=== PATIENT | male | born 1960 | race African-American/Black ===

== ENCOUNTER 2019-08-03 22:38 | Inpatient (IN) | payer SELFPAY ==
[~2019-08-03] VITALS: Ht 167.6 cm; Wt 57.2 kg
[2019-08-03] MEDS ORDERED: MORPHINE SULFATE 4 MG/ML CPJ (NOT FOR IM USE) IV STA (23:35)
[2019-08-03] MEDS ORDERED: SODIUM CHLORIDE 0.9% 1,000 ML IV ONE (23:35)
[2019-08-03] MEDS ORDERED: ONDANSETRON HCL 4MG/2ML INJ IV STA (23:35)
[2019-08-03] MEDS ORDERED: PANTOPRAZOLE SODIUM 40 MG/VIAL IV ONE (23:45)
[2019-08-04 00:16] LABS: BASOPHILS % 0.6 % (0.0-2.0); HEMATOCRIT. 26.7 % (42.0-52.0); HEMOGLOBIN. 9.2 g/dL (14.0-18.0); LYMPHOCYTES % 14.7 % (20.0-50.0); MEAN CORPUSCULAR HEMOGLOBIN 25.2 pg (28.0-32.0); MEAN CORPUSCULAR VOLUME 72.9 fL (80.0-94.0); MEAN PLATELET VOLUME 6.7 fl (7.4-10.4); NEUTROPHILS % 74.7 % (40.0-76.0); PLATELET 431 x1000/uL (130-400); RED BLOOD CELL COUNT 3.66 mill/uL (4.7-6.1); RED CELL DISTRIBUTION WIDTH 17.1 % (11.6-14.6)
[2019-08-04 00:23] LABS: CHLORIDE 106 mEq/L (98-107)
[2019-08-04 00:33] LABS: PARTIAL THROMBOPLASTIN TIME 23.1 sec (23.4-31.0); PROTHROMBIN TIME 10.6 sec (9.6-11.0)
[2019-08-04] MEDS: SODIUM CHLORIDE 0.45% 1,000 ML IV SCH ×2 (07:18→21:18)
[2019-08-04] MEDS ORDERED: IPRATROPIUM/ALBUTEROL 0.5-3(2.5)MG/3ML NEB NEB PRN (07:30)
[2019-08-04] MEDS ORDERED: HYDRALAZINE 20MG/ML VIAL IV PRN (07:30)
[2019-08-04] MEDS ORDERED: DEXTROSE 50% WATER 50ML SYRINGE IV PRN (07:30)
[2019-08-04] MEDS ORDERED: GUAIFENESIN 200MG/10ML SUGAR FREE UDC PO PRN (07:30)
[2019-08-04] MEDS ORDERED: DIPHENHYDRAMINE 50MG/ML VIAL IV PRN (07:30)
[2019-08-04] MEDS ORDERED: CLONIDINE 0.1MG TABLET PO PRN (07:30)
[2019-08-04] MEDS ORDERED: DOCUSATE SODIUM 100MG CAPSULE PO PRN (07:30)
[2019-08-04] MEDS ORDERED: ACETAMINOPHEN 325MG TABLET PO PRN (07:30)
[2019-08-04] MEDS: INSULIN LISPRO 100 UNITS/ML SUBCUT SCH ×4 (08:20→20:56)
[2019-08-04] MEDS: BLOOD SUGAR DIAGNOSTIC STRIP TEST SCH ×4 (08:56→20:32)
[2019-08-04] MEDS ORDERED: NA PHOS,M-B/NA PHOS,DI-BA ENEMA 118ML PR PRN (09:00)
[2019-08-04] MEDS: MORPHINE SULFATE 2 MG/ML CPJ (NOT FOR IM USE) IV PRN ×2 (09:33→21:00)
[2019-08-04] MEDS: ONDANSETRON HCL 4MG/2ML INJ IV PRN ×2 (09:33→18:32)
[2019-08-04 11:26] VITALS: BP 172/79
[2019-08-04] MEDS: HYDROCODONE/ACETAMINOPHEN 10/325MG TABLET PO PRN (11:57)
[2019-08-04] MEDS: PANTOPRAZOLE SODIUM 40 MG/VIAL IV SCH (11:59)
[2019-08-04] MEDS: SODIUM CHLORIDE 0.9% INJ 3ML FLUSH IVF SCH (14:00)
[2019-08-04 16:10] LABS: CREATINE KINASE 124 IU/L (39-308)
[2019-08-04 16:12] LABS: CREATINE KINASE MB FRACTION 1.4 ng/mL (0.5-3.6)
[2019-08-04 18:02] LABS: HEMATOCRIT 29.1 % (42.0-52.0); HEMOGLOBIN 9.7 g/dL (14.0-18.0)
[2019-08-04] MEDS: MAGNESIUM/ALUMINUM HYDROXIDE/SIMETHICONE 30ML UDC PO PRN (18:31)
[2019-08-04 20:00] VITALS: BP 123/69
[2019-08-05] VITALS: BP 111/56
[2019-08-05 00:32] LABS: CREATINE KINASE MB FRACTION < 1.0 ng/mL (0.5-3.6)
[2019-08-05 00:36] LABS: CREATINE KINASE 98 IU/L (39-308)
[2019-08-05 00:53] LABS: HEMATOCRIT 26.5 % (42.0-52.0); HEMOGLOBIN 8.7 g/dL (14.0-18.0)
[2019-08-05 04:00] VITALS: BP 143/79
[2019-08-05] MEDS: SODIUM CHLORIDE 0.9% INJ 3ML FLUSH IVF SCH ×2 (05:17→14:00)
[2019-08-05] MEDS: BLOOD SUGAR DIAGNOSTIC STRIP TEST SCH ×4 (05:42→21:44)
[2019-08-05] MEDS: INSULIN LISPRO 100 UNITS/ML SUBCUT SCH ×4 (05:42→21:50)
[2019-08-05] MEDS: MORPHINE SULFATE 2 MG/ML CPJ (NOT FOR IM USE) IV PRN ×4 (05:43→21:31)
[2019-08-05 06:13] LABS: BASOPHILS % 0.3 % (0.0-2.0); EOSINOPHILS % 1.1 % (0.0-5.0); HEMATOCRIT. 27.7 % (42.0-52.0); HEMOGLOBIN. 9.2 g/dL (14.0-18.0); LYMPHOCYTES % 25.3 % (20.0-50.0); MEAN CORPUSCULAR HEMOGLOBIN 24.2 pg (28.0-32.0); MEAN CORPUSCULAR VOLUME 72.7 fL (80.0-94.0); MEAN PLATELET VOLUME 6.7 fl (7.4-10.4); MONOCYTES % 6.6 % (2.0-8.0); NEUTROPHILS % 66.7 % (40.0-76.0); PLATELET 440 x1000/uL (130-400); RED BLOOD CELL COUNT 3.82 mill/uL (4.7-6.1); RED CELL DISTRIBUTION WIDTH 17.6 % (11.6-14.6)
[2019-08-05 07:25] LABS: CHLORIDE 106 mEq/L (98-107)
[2019-08-05 08:20] VITALS: BP 135/70
[2019-08-05] MEDS: PANTOPRAZOLE SODIUM 40 MG/VIAL IV SCH ×2 (09:12→20:45)
[2019-08-05] MEDS: MAGNESIUM/ALUMINUM HYDROXIDE/SIMETHICONE 30ML UDC PO PRN (09:12)
[2019-08-05] MEDS: SODIUM CHLORIDE 0.45% 1,000 ML IV SCH ×2 (10:50→21:32)
[2019-08-05 12:28] VITALS: BP 126/68
[2019-08-05 16:12] VITALS: BP 135/70
[2019-08-06] VITALS: BP 113/56
[2019-08-06] MEDS: SODIUM CHLORIDE 0.9% INJ 3ML FLUSH IVF SCH ×4 (00:38→22:26)
[2019-08-06] MEDS: MORPHINE SULFATE 2 MG/ML CPJ (NOT FOR IM USE) IV PRN ×4 (02:22→22:27)
[2019-08-06 04:00] VITALS: BP 117/72
[2019-08-06 06:11] LABS: BASOPHILS % 0.6 % (0.0-2.0); EOSINOPHILS % 2.4 % (0.0-5.0); HEMATOCRIT. 25.6 % (42.0-52.0); HEMOGLOBIN. 8.4 g/dL (14.0-18.0); LYMPHOCYTES % 40.6 % (20.0-50.0); MEAN CORPUSCULAR HEMOGLOBIN 24.1 pg (28.0-32.0); MEAN CORPUSCULAR VOLUME 73.4 fL (80.0-94.0); MEAN PLATELET VOLUME 6.5 fl (7.4-10.4); MONOCYTES % 12.9 % (2.0-8.0); NEUTROPHILS % 43.5 % (40.0-76.0); PLATELET 446 x1000/uL (130-400)
[2019-08-06] MEDS: BLOOD SUGAR DIAGNOSTIC STRIP TEST SCH ×4 (06:25→21:00)
[2019-08-06] MEDS: INSULIN LISPRO 100 UNITS/ML SUBCUT SCH ×4 (06:25→21:00)
[2019-08-06 06:29] LABS: CHLORIDE 106 mEq/L (98-107)
[2019-08-06] MEDS: ONDANSETRON HCL 4MG/2ML INJ IV PRN ×2 (09:08→17:04)
[2019-08-06] MEDS: PANTOPRAZOLE SODIUM 40 MG/VIAL IV SCH ×2 (09:08→22:25)
[2019-08-06 12:00] VITALS: BP 112/63
[2019-08-06] MEDS: SODIUM CHLORIDE 0.45% 1,000 ML IV SCH (12:38)
[2019-08-06] MEDS: MAGNESIUM/ALUMINUM HYDROXIDE/SIMETHICONE 30ML UDC PO PRN (14:56)
[2019-08-06 16:00] VITALS: BP 106/65
[2019-08-06 20:00] VITALS: BP 128/81
[2019-08-07] VITALS: BP 127/66
[2019-08-07] MEDS: SODIUM CHLORIDE 0.45% 1,000 ML IV SCH ×3 (02:07→21:26)
[2019-08-07] MEDS: LORAZEPAM 2MG/ML CPJ IV PRN ×2 (02:07→23:56)
[2019-08-07 04:00] VITALS: BP 126/70
[2019-08-07 05:48] LABS: CHLORIDE 108 mEq/L (98-107)
[2019-08-07 05:49] LABS: PROTHROMBIN TIME 10.9 sec (9.6-11.0)
[2019-08-07] MEDS: SODIUM CHLORIDE 0.9% INJ 3ML FLUSH IVF SCH ×3 (06:10→21:26)
[2019-08-07 06:26] LABS: BASOPHILS % 0.3 % (0.0-2.0); EOSINOPHILS % 3.4 % (0.0-5.0); HEMATOCRIT. 27.6 % (42.0-52.0); HEMOGLOBIN. 9.1 g/dL (14.0-18.0); LYMPHOCYTES % 38.5 % (20.0-50.0); MEAN CORPUSCULAR HEMOGLOBIN 24.1 pg (28.0-32.0); MEAN CORPUSCULAR VOLUME 73.1 fL (80.0-94.0); MEAN PLATELET VOLUME 6.5 fl (7.4-10.4); MONOCYTES % 13.1 % (2.0-8.0); NEUTROPHILS % 44.7 % (40.0-76.0); PLATELET 432 x1000/uL (130-400); RED BLOOD CELL COUNT 3.77 mill/uL (4.7-6.1); RED CELL DISTRIBUTION WIDTH 17.8 % (11.6-14.6)
[2019-08-07] MEDS: BLOOD SUGAR DIAGNOSTIC STRIP TEST SCH ×4 (07:33→21:26)
[2019-08-07] MEDS: INSULIN LISPRO 100 UNITS/ML SUBCUT SCH ×4 (07:50→21:20)
[2019-08-07 08:20] VITALS: BP 127/69
[2019-08-07] MEDS: PANTOPRAZOLE SODIUM 40 MG/VIAL IV SCH ×2 (08:27→21:25)
[2019-08-07] MEDS: MORPHINE SULFATE 2 MG/ML CPJ (NOT FOR IM USE) IV PRN ×3 (12:03→21:36)
[2019-08-07 12:14] VITALS: BP 131/69
[2019-08-07 16:09] VITALS: BP 122/65
[2019-08-07] MEDS ORDERED: MIDAZOLAM HCL 5 MG/5 ML VIAL IV PRN (17:55)
[2019-08-07] MEDS ORDERED: FENTANYL CITRATE/PF 50MCG/ML 2ML VIAL IV PRN (17:56)
[2019-08-07] MEDS ORDERED: MIDAZOLAM HCL 5 MG/5 ML VIAL ONE (17:58)
[2019-08-07] MEDS ORDERED: FENTANYL CITRATE/PF 50MCG/ML 2ML VIAL ONE (17:59)
[2019-08-07 20:00] VITALS: BP 129/69
[2019-08-07] MEDS: SUCRALFATE 1 G/10 ML UDC PO SCH (21:25)
[2019-08-07] MEDS: ONDANSETRON HCL 4MG/2ML INJ IV PRN (23:56)
[2019-08-08] VITALS: BP 114/64
[2019-08-08 04:00] VITALS: BP 116/66
[2019-08-08] MEDS: SODIUM CHLORIDE 0.9% INJ 3ML FLUSH IVF SCH ×3 (05:35→21:57)
[2019-08-08] MEDS: LORAZEPAM 2MG/ML CPJ IV PRN (05:35)
[2019-08-08] MEDS: METOCLOPRAMIDE HCL 10MG/2ML VIAL IV SCH ×3 (06:47→17:20)
[2019-08-08] MEDS: BLOOD SUGAR DIAGNOSTIC STRIP TEST SCH ×4 (06:47→21:56)
[2019-08-08] MEDS: SUCRALFATE 1 G/10 ML UDC PO SCH ×4 (06:50→21:55)
[2019-08-08] MEDS: INSULIN LISPRO 100 UNITS/ML SUBCUT SCH ×4 (07:50→22:11)
[2019-08-08 08:45] VITALS: BP 130/73
[2019-08-08] MEDS: PANTOPRAZOLE SODIUM 40 MG/VIAL IV SCH ×2 (09:47→21:00)
[2019-08-08] MEDS ORDERED: METF-414 MT (10:00)
[2019-08-08] MEDS ORDERED: GABA800T PO (10:00)
[2019-08-08 12:08] LABS: HEMATOCRIT 29.4 % (42.0-52.0); HEMOGLOBIN 9.5 g/dL (14.0-18.0); MEAN CORPUSCULAR HEMOGLOBIN 23.8 pg (28.0-32.0); MEAN CORPUSCULAR VOLUME 73.6 fL (80.0-94.0); PLATELET 452 x1000/uL (130-400); RED CELL DISTRIBUTION WIDTH 17.6 % (11.6-14.6)
[2019-08-08 12:20] VITALS: BP 118/75
[2019-08-08 16:16] VITALS: BP 119/68
[2019-08-08] MEDS: SODIUM CHLORIDE 0.45% 1,000 ML IV SCH (17:58)
[2019-08-08] MEDS: HYDROCODONE/ACETAMINOPHEN 10/325MG TABLET PO PRN ×2 (18:19→22:01)
[2019-08-08 20:00] VITALS: BP 127/67
[2019-08-09] VITALS: BP 121/67
[2019-08-09] MEDS: HYDROCODONE/ACETAMINOPHEN 10/325MG TABLET PO PRN (03:02)
[2019-08-09 04:00] VITALS: BP 130/65
[2019-08-09] MEDS: SODIUM CHLORIDE 0.9% INJ 3ML FLUSH IVF SCH (04:39)
[2019-08-09] MEDS: SODIUM CHLORIDE 0.45% 1,000 ML IV SCH (06:27)
[2019-08-09] MEDS: METOCLOPRAMIDE HCL 10MG/2ML VIAL IV SCH ×2 (06:27→12:20)
[2019-08-09] MEDS: SUCRALFATE 1 G/10 ML UDC PO SCH ×2 (06:28→12:20)
[2019-08-09] MEDS: BLOOD SUGAR DIAGNOSTIC STRIP TEST SCH ×2 (06:28→12:20)
[2019-08-09] MEDS: INSULIN LISPRO 100 UNITS/ML SUBCUT SCH ×2 (06:50→12:50)
[2019-08-09] MEDS: PANTOPRAZOLE SODIUM 40 MG/VIAL IV SCH (09:00)
[2019-08-09 12:00] VITALS: BP 133/70
[2019-08-09 14:31] VITALS: BP 125/75
== END 2019-08-09 15:00 | disposition home or self-care (01) | DRG 241 ==
LOC: ER 22:38 → 6WST 08-04 01:17 → ENRESERV 08-04 08:35
PROVIDERS: ADMIT Internal Medicine; ATTEND Internal Medicine
PROC: 0DB68ZX Excision of Stomach, Via Natural or Artificial Opening Endoscopic, Diagnostic (ICD-10-PCS; principal; 2019-08-07)
DX: K29.70 Gastritis, unspecified, without bleeding (principal); K22.11 Ulcer of esophagus with bleeding; D57.1 Sickle-cell disease without crisis; H54.61 Unqualified visual loss, right eye, normal vision left eye; N28.1 Cyst of kidney, acquired; K21.9 Gastro-esophageal reflux disease without esophagitis; K44.9 Diaphragmatic hernia without obstruction or gangrene; K59.00 Constipation, unspecified; M48.00 Spinal stenosis, site unspecified; M51.37 Other intervertebral disc degeneration, lumbosacral region; K25.9 Gastric ulcer, unspecified as acute or chronic, without hemorrhage or perforation; I10 Essential (primary) hypertension; Z59.0 Homelessness; Z87.11 Personal history of peptic ulcer disease; Z91.19 Patient's noncompliance with other medical treatment and regimen
CPT/HCPCS: 36415; 71045; 74176; 80048; 80053; 82270; 82550; 82553; 82962; 83036; 84484; 85014; 85018; 85025; 85027; 86850; 86900; 88305; 88313; 93005; 93970; 99285; C9113; J1815; J2060; J2250; J2270; J2405; J2765; J3010; J7030